=== PATIENT | female | born 1980 | race Caucasian/White ===

== ENCOUNTER 2019-05-20 10:15 | Emergency (ER) | payer OTHER ==
[2019-05-20] MEDS ORDERED: Lidocaine 1% w/Epinephrine 1:100K 20 ML VIAL ONE (10:30)
[2019-05-20] MEDS ORDERED: Adacel (T-DAP) 0.5 ML SYRINGE ONE (10:30)
--- NOTE | 2019-05-20 10:45 | RAD ---
Radiograph left foot 3 views: DATE: 05/20/2019 HISTORY: 39-year-old female status post laceration. Rule out foreign body. FINDINGS: No radiopaque foreign body is visualized. No fracture or destructive osseous lesion. No dislocation. IMPRESSION: Negative.
== END 2019-05-20 12:14 | disposition home or self-care (01) ==
LOC: ERS 10:15
DX: S91.312A Laceration without foreign body, left foot, initial encounter (principal); Z23 Encounter for immunization; W26.8XXA Contact with other sharp object(s), not elsewhere classified, initial encounter
CPT/HCPCS: 12002; 90471; 90715